=== PATIENT | male | born 1990 | race Caucasian/White ===

== ENCOUNTER 2021-02-07 08:25 | Outpatient (REF) | payer OTHER, SELFPAY ==
[2021-02-07 12:10] LABS: Alanine Aminotransferase 41 U/L (0-40); Aspartate Amino Transferase 29 U/L (5-37); Cholesterol 146 mg/dL; Glucose Fasting 81 mg/dL (60-99); HDL Cholesterol 47 mg/dL; LDL Cholesterol Calculated 91 mg/dl; Triglycerides 41 mg/dL
[2021-02-08 17:21] LABS: Rubella IgG Antibody 1.06 Index
[2021-02-09 08:16] LABS: HBS Num1 17.46 mIU/mL (0-7.99); ~Hepatitis B Surface Antibody REACTIVE (Nonreactive)
[2021-02-10 16:21] LABS: TS Negative Control Passed; TS Panel A 0; TS Panel B 0; TS Positive Control Passed; TSpotTB Negative (SeeBelow)
== END 2021-02-07 08:26 | disposition home or self-care (01) ==
LOC: HO.HMGCLDS 08:25
PROVIDERS: PCP Internal Medicine; Visit Provider Internal Medicine
DX: Z00.00 Encounter for general adult medical examination without abnormal findings (principal); Z11.1 Encounter for screening for respiratory tuberculosis
CPT/HCPCS: 36415; 80061; 82947; 84450; 84460; 86481; 86706; 86735; 86762; 86765; 86787

== ENCOUNTER 2022-02-12 09:09 | Outpatient (REF) | payer OTHER, SELFPAY ==
--- NOTE | ~2022-02-12 | XR_ITS ---
EXAMINATION: HAND AND WRIST X-RAY CLINICAL INFORMATION: Pain COMPARISON: None TECHNIQUE: 4 views of the right hand and wrist FINDINGS: Bone alignment is normal. No fracture or dislocation is seen. Joint spaces and soft tissues are normal. XR/XR hand wrist RT IMPRESSION: Unremarkable exam.
[2022-02-12 10:06] LABS: Cholesterol 154 mg/dL; Glucose Fasting 84 mg/dL (60-99); HDL Cholesterol 48 mg/dL; LDL Cholesterol Calculated 96 mg/dl; Triglycerides 52 mg/dL
[2022-02-12 10:16] LABS: Vitamin D 25-OH Total 14.2 ng/mL (>30)
== END 2022-02-12 09:10 | disposition home or self-care (01) ==
LOC: HO.LAB 09:09
PROVIDERS: PCP Internal Medicine; Visit Provider Internal Medicine
DX: Z00.00 Encounter for general adult medical examination without abnormal findings (principal); M79.644 Pain in right finger(s); M25.531 Pain in right wrist
CPT/HCPCS: 36415; 73110; 73130; 80061; 82306; 82947

== ENCOUNTER 2023-04-23 10:49 | Outpatient (AMB) | payer OTHER, SELFPAY ==
--- NOTE | 2023-04-23 11:31 | A.OFFPC_ITS ---
Vital Signs 04/23/23 11:36 Height 6 ft Weight 169 lb BMI 22.9 BP 100/64 Blood Pressure Location Lt brachial Position Sitting Pulse 66 Pulse Source Pulse Oximeter Pulse Oximetry (%) 99 Oxygen Delivery Method Room Air Intake Visit Reasons: Left knee pain x 2 months Intake Note: Pt is here today c/o Lt knee pain x2mo. playing volleyball Allergies No Known Allergies Allergy (Verified 04/23/23 11:42) Medication List - Last Reconciled 04/23/23 by Angélica William MD No Known Home Meds Tobacco use date assessed: 04/23/23 Dental Screening Dental Screen Date: 04/23/23 Did you have a dental visit in the last 12 months?: Yes Did you have a dental problem in the last 6 months where you did not have access to dental care?: No Was dental information given to patient?: Patient has dentist HPI Left knee pain x 2 months HPI Details 32-year-old male presents today complain ing of persistent pain in left knee, worse with bending, walking for extended periods of time, present now for the last 2 months. Patient states that he was playing volleyball when he landed wrong on the left knee. [facility] Medical History History of chickenpox No significant past medical history Surgical History No pertinent past surgical history Family History Other No significant family history Social History Housing: House Alcohol intake: current Alcohol intake frequency: holidays/special occasions only Alcohol type: beer and wine Patient Tobacco Use Status: Former Tobacco user Tobacco use type: Cigarette Cigarettes Per Day: 2 e-Cigarette/Vaping Use: Former Use Second Hand Smoke Exposure: No Substance Use Type: Marijuana service: No Current occupational status: employed Cognitive needs: No Hearing needs: No Vision needs: No Questionnaire Thrive Questionnaire Date Thrive assessed: 02/07/22 BJ-7 AMB Questionnaire BJ-7 Date BJ - 7 assessed: 02/07/22 Source: Developed by Drs. Quincy LMiranda Chavez Kurt Kroenke and colleagues, with an educational sri from [employer]. Review of Systems Const All systems reviewed & are unremarkable except as noted in HPI and below Physical exam (Primary Care) Vital Signs: Last Vital Signs Pulse 66 04/23/23 11:36 BP 100/64 04/23/23 11:36 Pulse Ox 99 04/23/23 11:36 Oxygen Delivery Method Room Air 04/23/23 11:36 BMI result Body Mass Index 22.9 Tobacco/Smoking Status: Tobacco use Status Tobacco use date assessed 04/23/23 04/23/23 11:33 Patient Tobacco Use Status Former Tobacco user 04/23/23 11:33 Tobacco use type Cigarette 04/23/23 11:33 e-Cigarette/Vaping Use Former Use 04/23/23 11:33 Thrive Assessment: Date of Thrive Assessment Date Thrive assessed 02/07/22 04/23/23 11:33 Const Other: Alert oriented x3 no acute distress noted , ambulatory with normal gait Extrem Other: crepitus noted on left knee, normal range of motion, no tenderness on palpation of medial, lateral or anterior aspect of left knee joint, no effusion seen Assessment and Plan Assessment & Plan (1) Left anterior knee pain: Code(s): M25.562 - Pain in left knee Plan: Likely ligament strain, x-ray of left knee ordered ,, advised to avoid any strenuous exertion, no playing volleyball/soccer/basketball until symptom completely resolved. Referral to physical therapy ordered, Call if after physical therapy no improvement of symptoms noted Orders: Orders XR knee LT 4V 04/23/23 M25.562 - Pain in left knee PT Evaluation and Treatment 04/23/23 M25.562 - Pain in left knee Coding Level of Care Code Est Pt Level 3 (18956) Diagnoses Left anterior knee pain M25.562
[2023-04-23 11:36] VITALS: BP 100/64; PULSE 66; O2SAT 99; BMI 22.9
== END 2023-04-23 11:56 | disposition home or self-care (01) ==
PROVIDERS: PCP Internal Medicine; Visit Provider Internal Medicine
DX: M25.562 Pain in left knee (principal)
CPT/HCPCS: 99213

== ENCOUNTER 2023-04-23 11:59 | Outpatient (REF) | payer OTHER, SELFPAY ==
--- NOTE | ~2023-04-23 | XR_ITS ---
EXAMINATION: XR KNEE, LEFT CLINICAL INFORMATION: Left knee pain. COMPARISON: None available. TECHNIQUE: Four views of the left knee. FINDINGS: No fracture or joint effusion. Alignment is anatomic. Joint spaces are maintained. No abnormal soft tissue calcification. XR/XR knee LT 4V IMPRESSION: Unremarkable examination.
== END 2023-04-23 12:00 | disposition home or self-care (01) ==
LOC: HO.HMGCX 11:59
PROVIDERS: PCP Internal Medicine; Visit Provider Internal Medicine
DX: M25.562 Pain in left knee (principal)
CPT/HCPCS: 73564

== ENCOUNTER 2023-06-19 08:00 | Outpatient (RCR) | payer OTHER, SELFPAY ==
--- NOTE | 2023-05-15 11:53 | MHC.PT.EP ---
[facility] [place] [facility] [place] [facility] [place] [facility] [address] Lexi Luo [address] [phone] F: [phone] F: [phone] F: [phone] F: [phone] Physical Therapy Plan of Care Date of Evaluation: 05/15/23 Date of Surgery: n/a Diagnosis: pain in L knee Assessment: Patient is a 32 year old male presenting to PT with complaints of pain in his L knee. Pt reports onset of pain began his L knee due to playing a lot of volleyball. He presents today with impairments in pain, hs muscle length, quad muscle length, +ttp to patella tendon, hip strength. 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 Clinical presentation today is most consistent with signs and sx associated with L knee pain and pt will benefit from skilled PT 2 week x 4 weeks to address the following problems and impairments noted upon evaluation: pain, hs muscle length, quad muscle length, +ttp to patella tendon, hip strength. These problems limit the patient with the following functional activities: prolonged sitting, after volleyball, stair negotiation, squatting, kneeling. The prescribed treatment plan of care is medically necessary. Co-morbidities of none were identified and taken into considerations of plan of care. Pt was educated on HEP, role of PT, prognosis, POC. Frequency and Duration: The patient will be seen 2 x week x 4 weeks Short Term Goals: Pt will demonstrate improved hs muscle length in 2 weeks. Pt will demonstrate improved quad muscle length in 2 weeks. Pt will demonstrate improved hip MMT strength by 1/3 grade in 2 weeks for improved lumbopelvic stability. [employer] Goals: Pt will demonstrate improved LEFI score by 9 points in 4 weeks for improved functional mobility. Pt will demonstrate ability to play volleyball with min to no pain in 4 weeks for return to PLOF. Pt will demonstrate ability to squat and kneel with min to no pain in 4 weeks for improved tolerance to work. Treatment Plan: Modalities to reduce pain, spasms and effusion. Manual therapy to restore motion and function. Therapeutic exercise to improve strength and flexibility. Neuromuscular re-education for posture and balance. Therapeutic activities to return to functional activities of daily living. Electronically signed by: Melody Coleman, PT, DPT, ATC Please sign and return to therapist. Thank you for your referral.
--- NOTE | 2023-07-23 13:51 | MHC.PT.DC ---
[facility] [place] [facility] [place] [facility] [place] Office [address] [phone] F: [phone] F: [phone] F: [phone] F: [phone] Physical Therapy Discharge Report Diagnosis: pain in L knee Date of Surgery: n/a Date of Evaluation: 05/15/23 Date of Discharge: 07/23/23 Treatments to Date: 5 Cancellations to Date: 0 No Shows to Date: 1 Discharge Status: Achieved Goals Improved Function Independent with HEP Discharge Summary: Pt had been placed on 30 day hold at last visit. Pt has not called to be scheduled and plan was to d/c if no new issues came up. Pt to be d/c at this time. Electronically signed by: Melody Coleman, PT, DPT, ATC Please sign and return to therapist. Thank you for your referral.
== END 2023-07-23 13:52 | disposition home or self-care (01) ==
LOC: HO.PTCHIC 08:00
PROVIDERS: PCP Internal Medicine; Visit Provider Internal Medicine
DX: M25.562 Pain in left knee (principal)
CPT/HCPCS: 97110; 97161

== ENCOUNTER 2024-05-06 10:50 | Outpatient (AMB) | payer OTHER, SELFPAY ==
--- NOTE | 2024-05-06 11:30 | MHC.PC.OV ---
Vital Signs 05/06/24 11:32 Height 6 ft Weight 169 lb BMI 22.9 BP 100/70 Blood Pressure Location Lt brachial Position Sitting Pulse 65 Pulse Source Pulse Oximeter Pulse Oximetry (%) 98 Oxygen Delivery Method Room Air Intake Visit Reasons: PE Intake Note: Pt is here today for his PE Allergies No Known Allergies Allergy (Verified 05/06/24 11:49) Medication List - Last Reconciled 05/06/24 by Angélica William MD No Known Home Meds Tobacco use date assessed: 04/23/23 Dental Screening Dental Screen Date: 05/06/24 Did you have a dental visit in the last 12 months?: Yes Did you have a dental problem in the last 6 months where you did not have access to dental care?: No Was dental information given to patient?: Patient has dentist HPI PE HPI Details 33-year-old male here today for his physical exam. Currently not on any medications, has been feeling well with no complaints at present time. He has a 1-month-old baby at home, needs Tdap [facility] Medical History (Updated 05/06/24 @ 12:01 by Angélica William MD) Vitamin D deficiency History of chickenpox Surgical History No pertinent past surgical history Family History Other No significant family history Social History Housing: House Alcohol intake: current Alcohol intake frequency: holidays/special occasions only Alcohol type: beer and wine Patient Tobacco Use Status: Former Tobacco user Tobacco use type: Cigarette Cigarettes Per Day: 2 e-Cigarette/Vaping Use: Former Use Second Hand Smoke Exposure: No Substance Use Type: Marijuana service: No Current occupational status: employed Cognitive needs: No Hearing needs: No Vision needs: No Questionnaire PHQ-9 Over the last 2 weeks, how often have you been bothered by any of the following problems? 1. Little interest or pleasure in doing things: not at all 2. Feeling down, depressed, or hopeless: not at all 3. Trouble falling or staying asleep, or sleeping too much: not at all 4. Feeling tired or having little energy: not at all 5. Poor appetite or overeating: not at all 6. Feeling bad about yourself - or that you are a failure or have let yourself or your family down: not at all 7. Trouble concentrating on things, such as reading the newspaper or watching television: not at all 8. Moving or speaking so slowly that other people could have noticed. Or the opposite - being so fidgety or restless that you have been moving around a lot more than usual: not at all 9. Thoughts that you would be better off or of hurting yourself in some way: not at all Total score: 0 Depression Screening Interpretation: Negative Depression Screening Done: Yes 87124 - PHQ-9 Billing: Yes Source: Developed by Drs. Quincy Allison, Miranda Will, Russell Rivera and colleagues, with an educational sri from [employer]. Thrive Questionnaire Date Thrive assessed: 05/06/24 I am a: Patient What is your living situation today?: I have a steady place to live Within the past 12 months, did the food you bought not last and you didn't have the money to get more?: Never true Within the past 12 months, did you worry whether your food would run out before you got money to buy more?: Never true Do you have trouble paying for medicines?: No Do you have trouble getting transportation to medical appointments?: No Do you have trouble paying your heating and electricity bill?: No Do you have trouble taking care of your child, family member or friend?: No Do you have trouble with day-to-day activities such as bathing, preparing meals, shopping, managing finances, etc.?: No Are you interested in more education?: No Please select the resources that you would like help with: None Currently or been in a relationship where the following occur: No concerns reported THRIVE Score: 0 AUDIT C Alcohol Use Questionnaire (AUDIT-C) 1. How often do you have a drink containing alcohol?: Monthly or less 2. How many drinks containing alcohol do you have on a typical day when you are drinking?: 1 or 2 3. How often do you have six or more drinks on one occasion?: Never Total Score: 1 BJ-7 AMB Questionnaire BJ-7 Date BJ - 7 assessed: 05/06/24 Feeling nervous, anxious, or on edge: 0 = Not at all Not being able to stop or control worryin = Not at all Worrying too much about different things: 0 = Not at all Trouble relaxin = Not at all Being so restless that it is hard to sit still: 0 = Not at all Becoming easily annoyed or irritable: 0 = Not at all Feeling afraid as if something awful might happen: 0 = Not at all Total BJ-7 score (0-4 normal; 5-9 mild; 10-14 moderate; 15-21 severe): 0 Source: Developed by Drs. Quincy Allison, Miranda Will, Russell Rivera and colleagues, with an educational sri from [employer]. BJ-7 Assessment Billing BJ-7 Assessment Tool: BJ-7 Assessment 26294 Review of Systems Const Denies body aches, Denies fatigue, Denies fever(s), Denies headache(s) and Denies weakness Eyes Denies change in vision, Denies eye discharge and Denies itchy eyes ENT Denies dizziness, Denies headache(s), Denies nasal congestion, Denies nasal discharge and Denies sore throat Card Denies chest pain, Denies lightheadedness, Denies palpitations and Denies dyspnea Resp Denies chest congestion, Denies cough, Denies dyspnea and Denies wheezing GI Denies abdominal pain, Denies change in bowel habits and Denies heartburn Denies hematuria, Denies difficulty urinating, Denies dysuria, Denies urinary frequency and Denies urinary urgency Musc Reports no additional complaints Skin/Breast Denies breast pain, Denies breast mass, Denies lesions and Denies rash Neuro Denies dizziness, Denies headache(s) and Denies weakness Psych Reports no additional complaints Endo Denies fatigue, Denies polydipsia, Denies polyuria and Denies palpitations Anshu/Lymph Denies easy bruising Aller/Immun Denies itchy eyes, Denies seasonal rhinorrhea and Denies wheezing Physical exam (Primary Care) Vital Signs: Last Vital Signs Pulse 65 05/06/24 11:32 BP 100/70 05/06/24 11:32 Pulse Ox 98 05/06/24 11:32 Oxygen Delivery Method Room Air 05/06/24 11:32 BMI result Body Mass Index 22.9 Tobacco/Smoking Status: Tobacco use Status Tobacco use date assessed 04/23/23 05/06/24 11:31 Patient Tobacco Use Status Former Tobacco user 05/06/24 11:31 Tobacco use type Cigarette 05/06/24 11:31 e-Cigarette/Vaping Use Former Use 05/06/24 11:31 PHQ-9: PHQ-9 Score PHQ-9: Total score 0 05/06/24 11:31 Depression Screening Interpretation: Negative Thrive Assessment: Date of Thrive Assessment Date Thrive assessed 05/06/24 05/06/24 11:36 Currently or been in a relationship where the following occur: No concerns reported Const General: no acute distress Orientation/consciousness: patient oriented x3 Limitations: no limitations HENMT Ears: hearing grossly normal bilaterally, external ears normal, TM's normal bilaterally and EAC's normal General nose exam: Normal external nose present, Normal nasal mucous membranes and turbinates present and No nasal discharge present Mouth: oropharynx normal and moist mucous membranes Eyes General: appearance normal, both eyes and all related structures Neck Neck: Yes full ROM, Yes no lymphadenopathy and Yes supple Chest Chest palpation & inspection: normal inspection of the chest Resp Effort & Inspection: normal respiratory effort and able to speak in complete sentences Auscultation: clear to auscultation bilaterally Cardio Rate: regular rate Rhythm: regular rhythm Heart sounds: S1 normal heart sound present and S2 normal heart sound present GI Inspection: Yes normal to inspection Palpation (GI): Soft to palpation, nontender and no masses Auscultation: normal bowel sounds General: Yes no CVA tenderness Male General Exam: Yes normal external exam Back/Spine/Pelvis Back: no CVA tenderness Cervical Spine: cervical ROM normal Thoracic/Lumbar Spine: thoracic and lumbar spine normal to inspection Skin General skin exam: no rashes or lesions noted Neuro General: patient oriented x3, gait normal, tone normal, moves all extremities, Normal light touch and pain sensation and no focal motor deficits Cognition (Neuro): normal cognition Gait exam (Neuro): Normal gait present Motor exam (neuro): 5/5 motor strength present throughout Extrem General: Yes full ROM, Yes no joint enlargement, Yes no clubbing, cyanosis or edema and Yes normal gait Psych Appearance: grossly normal Mental Status: mental status grossly normal Speech and movement: Normal speech and movement present Affect: normal affect Attitude: cooperative Thought process: Normal thought process present Immunizations Boostrix Tdap 2.5 Lf unit-8 mcg-5 Lf/0.5 mL intramuscular syringe Performing Provider: Angélica William MD Performing Location: [facility] [place] Adult Primary Care-[facility] Administered by: Randee Khan CMA on 05/06/24 11:54 Dose Route Admin Location Dispensed Lot Number Expiration Date NDC Manager Inpatient 0.5 mL IM Right Deltoid 0.5 mL [id number] 05/23/26 33240-299-35 [employer] VIS Given Date VIS Provided VIS Publication Date 05/06/24 Single Vaccine 21 Eligibility Eligibility Date Funding Source Not [facility] Eligible 05/06/24 Private Coding Level of Care Code Est Pt Prev Care 18-39y(36086) Diagnoses Annual visit for general adult medical examination without abnormal findings Z00.00 Vitamin D deficiency E55.9 Additional Codes BJ-7 Assessment Billing - BJ-7 Assessment Tool: BJ-7 Assessment 77631 ([id number]) Assessment & Plan Assessment & Plan (1) Annual visit for general adult medical examination without abnormal findings: Code(s): Z00.00 - Encounter for general adult medical examination without abnormal findings Plan: Will check appropriate labs. Recommended dental visit every 6 months and regular eye exams, at least every 2 years. Do regular self testicular exam to check for any mass. Follow a healthy diet, get regular exercise Tdap given today, patient has a 1-month-old baby at home. Patient states he will get his flu vaccine at work, declined COVID booster (2) Vitamin D deficiency: Code(s): E55.9 - Vitamin D deficiency, unspecified Category: Medical Plan: Ordered vitamin-D level checked Orders: Orders Alanine Aminotransferase Today E55.9 - Vitamin D deficiency, unspecified, Z13.1 - Encounter for screening for diabetes mellitus, Z13.220 - Encounter for screening for lipoid disorders TDaP Immunization Today Z23 - Encounter for immunization Aspartate Amino Transferase Today E55.9 - Vitamin D deficiency, unspecified, Z13.1 - Encounter for screening for diabetes mellitus, Z13.220 - Encounter for screening for lipoid disorders Basic Metabolic Panel Fasting Today E55.9 - Vitamin D deficiency, unspecified, Z13.1 - Encounter for screening for diabetes mellitus, Z13.220 - Encounter for screening for lipoid disorders Lipid Panel Today E55.9 - Vitamin D deficiency, unspecified, Z13.1 - Encounter for screening for diabetes mellitus, Z13.220 - Encounter for screening for lipoid disorders Vitamin D 25-OH Total Today E55.9 - Vitamin D deficiency, unspecified, Z13.1 - Encounter for screening for diabetes mellitus, Z13.220 - Encounter for screening for lipoid disorders Medications: New Boostrix Tdap (diphth,pertus(acell),tetanus) 0.5 mL IM ONCE 0.5 mL 0RF NS Z23 - Encounter for immunization
[2024-05-06 11:32] VITALS: BP 100/70; PULSE 65; O2SAT 98; BMI 22.9
== END 2024-05-06 14:16 | disposition home or self-care (01) ==
PROVIDERS: PCP Internal Medicine; Visit Provider Internal Medicine
DX: Z00.00 Encounter for general adult medical examination without abnormal findings (principal); E55.9 Vitamin D deficiency, unspecified; Z23 Encounter for immunization

== ENCOUNTER → 2024-05-06 10:50 | Outpatient (BNVA) | payer OTHER, SELFPAY | PROVIDERS: PCP Internal Medicine; Visit Provider Internal Medicine | DX: Z00.00 Encounter for general adult medical examination without abnormal findings (principal); E55.9 Vitamin D deficiency, unspecified; Z23 Encounter for immunization | CPT/HCPCS: 90471; 90715; 96127 ==

== ENCOUNTER 2024-05-29 08:02 | Outpatient (REF) | payer OTHER, SELFPAY ==
[2024-05-29 11:57] LABS: Alanine Aminotransferase 21 U/L (0-40); Anion Gap 11 (12-20); Aspartate Amino Transferase 31 U/L (5-37); Blood Urea Nitrogen 13 mg/dL (9-16); Calcium 9.6 mg/dL (8.4-10.2); Carbon Dioxide 27 mmol/L (22-29); Chloride 104 mmol/L (96-108); Cholesterol 159 mg/dL (<200); Estimated Glomerular Filt Rate > 60; Glucose Fasting 76 mg/dL (60-99); HDL Cholesterol 48 mg/dL (>40); LDL Cholesterol Calculated 102 mg/dL (<100); Potassium 3.6 mmol/L (3.3-5.1); Sodium 138 mmol/L (135-145); Triglycerides 45 mg/dL (<150)
[2024-05-29 12:13] LABS: Vitamin D 25-OH Total 79.4 ng/mL (>30)
== END 2024-05-29 08:03 | disposition home or self-care (01) ==
LOC: HO.HMGCLDS 08:02
PROVIDERS: PCP Internal Medicine; Visit Provider Internal Medicine
DX: E55.9 Vitamin D deficiency, unspecified (principal); Z13.220 Encounter for screening for lipoid disorders; Z13.1 Encounter for screening for diabetes mellitus
CPT/HCPCS: 36415; 80048; 80061; 82306; 84450; 84460

== ENCOUNTER 2024-06-11 11:07 | Outpatient (REF) | payer OTHER, SELFPAY ==
[2024-06-11 18:15] LABS: CT PCR NOT DETECTED (Not Detect.); NG PCR NOT DETECTED (Not Detect.)
== END 2024-06-11 11:08 | disposition home or self-care (01) ==
LOC: HO.LNP 11:07
PROVIDERS: PCP Internal Medicine; Visit Provider Physician Assistant Medical
DX: Z11.3 Encounter for screening for infections with a predominantly sexual mode of transmission (principal)
CPT/HCPCS: 87491; 87591

== ENCOUNTER 2024-06-11 11:07 | Outpatient (AMB) | payer OTHER, SELFPAY ==
--- NOTE | 2024-06-11 11:14 | MHC.OFFWIV ---
Intake Vital Signs 06/11/24 11:22 Height 6 ft Weight 167 lb BMI 22.6 BP 110/70 Blood Pressure Location Rt brachial Position Sitting Pulse 62 Pulse Source Pulse Oximeter Pulse Oximetry (%) 97 Oxygen Delivery Method Room Air Intake Visit Reasons: EP STD testing Intake Note: Patient here to get STD checked, states his ex had chlamydia which she found out about 2 months ago. pt was put on antibiotics and just would like to confirm it is not still present. Patient Tobacco Use Status: Former Tobacco user Allergies No Known Allergies Allergy (Verified 06/11/24 11:23) Do you need a note to return to daycare/school/sports/work: No HPI HPI Comments History of Present Illness Details This is a 33-year-old male who presented to the walk-in clinic for STD testing. He states he had a known exposure to chlamydia several months ago. Patient was treated with antibiotics and he is presenting today requesting repeat testing to ensure the chlamydia has been treated. Patient denies any penile discharge, dysuria, abdominal/suprapubic pain, or fever/chills. [facility] Medical History (Updated 05/06/24 @ 12:01 by Angélica William MD) Vitamin D deficiency History of chickenpox Surgical History No pertinent past surgical history Family History Other No significant family history Social History Housing: House Alcohol intake: current Alcohol intake frequency: holidays/special occasions only Alcohol type: beer and wine Patient Tobacco Use Status: Former Tobacco user Tobacco use type: Cigarette Cigarettes Per Day: 2 e-Cigarette/Vaping Use: Former Use Second Hand Smoke Exposure: No Substance Use Type: Marijuana service: No Current occupational status: employed Cognitive needs: No Hearing needs: No Vision needs: No Review of Systems Const All systems reviewed & are unremarkable except as noted in HPI and below Reports no additional complaints Eyes Reports no additional complaints ENT Reports no additional complaints Card Reports no additional complaints Resp Reports no additional complaints GI Reports no additional complaints Reports no additional complaints Musc Reports no additional complaints Skin/Breast Reports system reviewed and no additional complaints, except as documented Neuro Reports no additional complaints Psych Reports no additional complaints Endo Reports no additional complaints Anshu/Lymph Reports no additional complaints Aller/Immun Reports no additional complaints Physical Exam Vital Signs: Last Vital Signs Pulse 62 06/11/24 11:22 BP 110/70 06/11/24 11:22 Pulse Ox 97 06/11/24 11:22 Oxygen Delivery Method Room Air 06/11/24 11:22 BMI result Body Mass Index 22.6 Const Other: Vital signs reviewed. Constitutional: Non-toxic appearing. No acute distress. Well-developed and well-nourished. HEENT: Normocephalic and atraumatic. Skin: Warm and dry. No rashes or lesions noted. Neck: Full and painless range of motion. Cardio: Regular rate. Pulmonary: No respiratory distress. No accessory muscle usage Musculoskeletal: Normal range of motion in joints throughout the body. No deformity or other signs of injury. Neuro: Alert and oriented x4. Cranial nerves 2-12 grossly intact. No focal deficits appreciated. Psych: Normal mood and affect. Assessment & Plan Assessment & Plan (1) Screen for sexually transmitted diseases: Code(s): Z11.3 - Encounter for screening for infections with a predominantly sexual mode of transmission Plan: This is a 33-year-old male who was empirically treated for chlamydia following known exposure who presented to the walk-in clinic today requesting repeat chlamydia testing. Patient's urine was sent for CT/NG testing. Patient will be called with the results. Patient advised to follow-up here if he were to develop symptoms. Patient verbalizes understanding and he is in agreement with the plan. Orders: Orders CT NG by PCR Today Z11.3 - Encounter for screening for infections with a predominantly sexual mode of transmission Coding Level of Care Code Est Pt Level 3 (37994) Diagnoses Screen for sexually transmitted diseases Z11.3
[2024-06-11 11:22] VITALS: BP 110/70; PULSE 62; O2SAT 97; BMI 22.6
== END 2024-06-11 12:17 | disposition home or self-care (01) ==
PROVIDERS: PCP Internal Medicine; Visit Provider Physician Assistant Medical
DX: Z11.3 Encounter for screening for infections with a predominantly sexual mode of transmission (principal)